=== PATIENT | female | born 2000 | race Hispanic/Latino ===

== ENCOUNTER 2022-05-31 20:30 | Day surgery (SDC) | payer BC ==
[2022-05-31 20:48] VITALS: BMI 37.7
[2022-05-31] MEDS ORDERED: hydrALAZINE 20 MG/ML VIAL SLOW IVP PRN (21:57)
== END 2022-05-31 23:18 | disposition home or self-care (01) ==
LOC: CSHLD/OP 20:30
PROVIDERS: ATTEND Obstetrics & Gynecology
DX: O47.1 False labor at or after 37 completed weeks of gestation (principal); O99.343 Other mental disorders complicating pregnancy, third trimester; F41.9 Anxiety disorder, unspecified; F32.A Depression, unspecified; Z3A.40 40 weeks gestation of pregnancy; Z79.899 Other long term (current) drug therapy

== ENCOUNTER 2022-06-01 23:39 | Inpatient (IN) | payer BC, OTHER ==
[~2022-06-01 23:39] MED LIST: Bupivacaine/Epinephrine 0.25% 30 ML VIAL ONE; Lidocaine 2% MPF 10 ML AMP (For Epidural Use) ONE
[2022-06-02 00:26] VITALS: BMI 37.7
[2022-06-02] MEDS ORDERED: Carboprost 250 MCG/ML AMP IM PRN (00:53)
[2022-06-02] MEDS ORDERED: Lidocaine 1% (PF) 30 ML VIAL SC PRN (00:53)
[2022-06-02] MEDS ORDERED: Ondansetron PF 4 MG/2 ML Vial IVP PRN ×4 (00:53→17:48)
[2022-06-02] MEDS ORDERED: Misoprostol 200 MCG TAB PR PRN ×2 (00:53→17:48)
[2022-06-02] MEDS ORDERED: Butorphanol Tartrate 1 MG/ML VIAL SLOW IVP PRN (00:53)
[2022-06-02] MEDS ORDERED: Promethazine HCl 25 MG/ML VIAL IM PRN ×3 (00:53→16:16)
[2022-06-02] MEDS ORDERED: Methylergonovine 0.2 MG/ML VIAL IM PRN ×2 (00:53→17:48)
[2022-06-02] MEDS ORDERED: hydrALAZINE 20 MG/ML VIAL SLOW IVP PRN ×2 (00:53→17:48)
[2022-06-02] MEDS ORDERED: Ibuprofen 800 MG TAB PO PRN (00:53)
[2022-06-02] MEDS ORDERED: Misoprostol 100 MCG TAB VAG SCH (01:00)
[2022-06-02] MEDS ORDERED: NS w/ Oxytocin 30 units 500 ML IV SCH ×3 (01:00→17:48)
[2022-06-02 01:48] LABS: Hemoglobin 11.4 g/dL (12.0-15.5); Mean Corpuscular Hemoglobin 29.7 pg (27.0-33.0); Mean Corpuscular Volume 87.2 fl (81.6-98.3); Mean Platelet Volume 11.3 fl (7.4-10.4); Platelet Count 270 10x3/uL (150-450); RBC Distribution Width 14.8 % (11.5-14.5); Red Blood Cell (RBC) Count 3.84 10x6/uL (3.90-5.03); White Blood Cell (WBC) Count 8.7 10x3/uL (3.5-10.5)
[2022-06-02 02:20] LABS: Syphilis Antibody Nonreactive (Nonreactive); Syphilis Antibody Index 0.05 S/CO (<1.00 Non-Reactive)
[2022-06-02 02:22] LABS: HBSAg Index 0.15 S/CO (0-0.99); Hep B Surf Ag Non-Reactive S/CO (NonReactive)
[2022-06-02] MEDS ORDERED: Fentanyl 2 mcg/Bup 0.1% Cadd 100 ML ONE ×2 (03:10→10:59)
[2022-06-02 04:07] LABS: SARS-CoV-2 NAA Rapid Test DETECTED (NotDetected)
[2022-06-02] MEDS: Lactated Ringer's 1,000 ML IV SCH (11:06)
[2022-06-02] MEDS ORDERED: Lactated Ringer's 500 ML IV PRN (13:30)
[2022-06-02] MEDS ORDERED: Acetaminophen 325 MG TAB PO PRN (13:30)
[2022-06-02] MEDS ORDERED: Communication Order-Pharmacy FS SCH ×2 (13:30→16:30)
[2022-06-02] MEDS ORDERED: Fentanyl 2 mcg/Bupivacaine 0.1% Cassette 100 ML EPIDURAL SCH (13:30)
[2022-06-02] MEDS ORDERED: diphenhydrAMINE 50 MG/ML VIAL IVP PRN ×2 (13:30→16:16)
[2022-06-02] MEDS ORDERED: ePHEDrine Sulfate 50 MG/10 ML VIAL SLOW IVP PRN (13:30)
[2022-06-02] MEDS ORDERED: Naloxone HCl 0.4 mg/ml Vial IVP PRN ×4 (13:30→16:16)
[2022-06-02] MEDS ORDERED: Moisturizing Cream (Eucerin) 113 GM JAR TOP PRN ×2 (13:30→16:16)
[2022-06-02] MEDS: Acetaminophen 500 MG TAB PO PRN ×2 (13:39→17:41)
[2022-06-02] MEDS ORDERED: Azithromycin 500 MG VIAL ONE (14:37)
[2022-06-02] MEDS ORDERED: CEFAZOLIN 2 GM VIAL ONE (14:38)
[2022-06-02] MEDS ORDERED: Bicitra 30 ML UDCUP PO PRN ×2 (14:38→14:39)
[2022-06-02] MEDS ORDERED: Famotidine/PF 20 mg/2ml Vial ONE (14:38)
[2022-06-02] MEDS ORDERED: Famotidine/PF 20 mg/2ml Vial SLOW IVP PRN ×2 (14:38→14:39)
[2022-06-02] MEDS ORDERED: Clindamycin/D5W 900 mg/50 ml Premix Bag ONE (14:42)
[2022-06-02] MEDS ORDERED: Azithromycin 500 MG in Sodium Chloride 0.9% 250 ML 250 ML IVPB SCH (14:45)
[2022-06-02] MEDS ORDERED: Clindamycin/D5W 900 MG in Premix Bag 1 BAG IVPB SCH (14:45)
[2022-06-02] MEDS ORDERED: Dexamethasone 4 mg/ml Vial ONE (15:09)
[2022-06-02] MEDS ORDERED: Ondansetron PF 4 MG/2 ML Vial ONE (15:09)
[2022-06-02] MEDS ORDERED: PHENYLEPHRINE-NS 100 MCG/ML 10 ML SYRINGE ONE (15:09)
[2022-06-02] MEDS ORDERED: Fentanyl 100 MCG/2 ML VIAL ONE (15:14)
[2022-06-02] MEDS ORDERED: Oxytocin 10 UNITS/ML VIAL ONE ×2 (15:14→15:33)
[2022-06-02 15:43] LABS: pH (Cord, venous) 7.362 (7.250-7.350)
[2022-06-02] MEDS ORDERED: Fentanyl 100 MCG/2 ML VIAL SLOW IVP PRN (16:16)
[2022-06-02] MEDS ORDERED: Naloxone HCl 0.4 mg/ml Vial IV PRN (16:16)
[2022-06-02] MEDS ORDERED: Ketorolac Tromethamine 30 MG/ML VIAL IVP PRN (16:16)
[2022-06-02] MEDS ORDERED: Ondansetron HCl/PF 4 MG/2 ML Vial IVP PRN (16:16)
[2022-06-02] MEDS ORDERED: Promethazine HCl 25 MG SUPP PR PRN (16:16)
[2022-06-02] MEDS ORDERED: HYDROmorphone 2 MG/ML VIAL SLOW IVP PRN (16:16)
[2022-06-02] MEDS ORDERED: Meperidine HCl/PF 25 MG/ML VIAL SLOW IVP PRN (16:16)
[2022-06-02] MEDS ORDERED: Ketorolac Tromethamine 30 MG/ML VIAL IVP SCH (16:30)
[2022-06-02] MEDS ORDERED: Boostrix 0.5 ML (Tdap) VIAL (>/=7 yrs of age) IM ONE (17:48)
[2022-06-02] MEDS ORDERED: diphenhydrAMINE 25 MG CAP PO PRN (17:48)
[2022-06-02] MEDS ORDERED: Bisacodyl 10 MG SUPP PR PRN (17:48)
[2022-06-02] MEDS ORDERED: Lanolin Ointment 7 GM TUBE TOP PRN (17:48)
[2022-06-02] MEDS: Docusate 100 MG CAP PO SCH (23:57)
[2022-06-02] MEDS: Ibuprofen 800 MG TAB PO SCH (23:57)
[2022-06-02] MEDS: Ferrous Sulfate 325 MG TAB PO SCH (23:58)
[2022-06-03] MEDS: Simethicone Chewable 80 MG TAB PO PRN ×2 (00:03→21:32)
[2022-06-03] MEDS: HYDROcodone/Acetaminophen 5/325 mg Tablet PO PRN ×4 (03:59→20:24)
[2022-06-03] MEDS: Lactated Ringer's 1,000 ML IV SCH (04:00)
[2022-06-03 04:25] LABS: Hemoglobin 9.8 g/dL (12.0-15.5); Mean Corpuscular HGB CONC 34.3 g/dL (32.0-36.0); Mean Corpuscular Hemoglobin 30.2 pg (27.0-33.0); Platelet Count 230 10x3/uL (150-450); Red Blood Cell (RBC) Count 3.25 10x6/uL (3.90-5.03); White Blood Cell (WBC) Count 15.2 10x3/uL (3.5-10.5)
[2022-06-03] MEDS: Ibuprofen 800 MG TAB PO SCH ×3 (08:33→21:32)
[2022-06-03] MEDS: Prenatal Vitamin 1 TAB PO SCH (08:33)
[2022-06-03] MEDS: Docusate 100 MG CAP PO SCH ×2 (08:33→20:24)
[2022-06-03] MEDS: Ferrous Sulfate 325 MG TAB PO SCH ×2 (17:37→20:24)
[2022-06-04] MEDS: Ibuprofen 800 MG TAB PO SCH ×3 (04:51→21:05)
[2022-06-04] MEDS: HYDROcodone/Acetaminophen 5/325 mg Tablet PO PRN ×5 (04:53→21:05)
[2022-06-04] MEDS: Prenatal Vitamin 1 TAB PO SCH (08:02)
[2022-06-04] MEDS: Ferrous Sulfate 325 MG TAB PO SCH ×2 (08:02→21:04)
[2022-06-04] MEDS: Docusate 100 MG CAP PO SCH ×2 (08:02→21:04)
[2022-06-04] MEDS: Simethicone Chewable 80 MG TAB PO PRN ×3 (09:13→21:04)
[2022-06-05] MEDS: HYDROcodone/Acetaminophen 5/325 mg Tablet PO PRN ×3 (01:05→09:34)
[2022-06-05] MEDS: Ibuprofen 800 MG TAB PO SCH (05:30)
[2022-06-05 08:06] VITALS: BP 116/66; TEMP 98.3
[2022-06-05] MEDS: Prenatal Vitamin 1 TAB PO SCH (08:47)
[2022-06-05] MEDS: Ferrous Sulfate 325 MG TAB PO SCH (08:48)
[2022-06-05] MEDS: Docusate 100 MG CAP PO SCH (08:48)
== END 2022-06-05 12:25 | disposition home or self-care (01) | DRG 786 ==
LOC: CSHLD/OP 23:39 → CSHLD 06-02 00:53 → CSHANTE 06-02 18:50
PROVIDERS: ADMIT Obstetrics & Gynecology; ATTEND Obstetrics & Gynecology
PROC: 10D00Z1 Extraction of Products of Conception, Low, Open Approach (ICD-10-PCS; principal; 2022-06-02)
PROC: 8E0ZXY6 Isolation (ICD-10-PCS; 2022-06-02)
DX: O98.52 Other viral diseases complicating childbirth (principal); U07.1 COVID-19; Z37.0 Single live birth; Z3A.40 40 weeks gestation of pregnancy; Z88.0 Allergy status to penicillin; Z88.1 Allergy status to other antibiotic agents; O76 Abnormality in fetal heart rate and rhythm complicating labor and delivery; O32.4XX0 Maternal care for high head at term, not applicable or unspecified; O69.81X0 Labor and delivery complicated by cord around neck, without compression, not applicable or unspecified
CPT/HCPCS: 51702; 82805; 85027; 86780; 86850; 86900; 86901; 87340; 99283; J0456; J1100; J1885; J2405; J2590; J3010; J3490; J7050; J7120; S0028; U0002

== ENCOUNTER 2022-06-08 00:17 | Emergency (ER) | payer BC, OTHER ==
[2022-06-08 00:50] LABS: Bilirubin Neg (Negative); Blood, Urine 250 (Negative); Clarity Cloudy (Clear); Glucose, Urine (Dipstick) Normal (Negative); Ketone, Urine Negative (Negative); Leukocyte 500 (Negative); Nitrite Negative (Negative); Protein, Urine (Dipstick) 30 mg/dl (Neg-Trace); Urobilinogen Normal mg/dL (Less than 2)
[2022-06-08 01:07] LABS: RBC/HPF 21-50 HPF (0-3); WBC/HPF Greater Than 50 HPF (0-3)
[2022-06-08 01:08] LABS: Bacteria/HPF 1+ HPF (None Seen); Squamous Epithelial 0-3 HPF (0-3); Transitional Epithelial None Seen HPF (None Seen)
== END 2022-06-08 01:35 | disposition home or self-care (01) ==
LOC: CSHERS 00:17
DX: N30.00 Acute cystitis without hematuria (principal)
CPT/HCPCS: 81003; 81015; 87804; 99283